=== PATIENT | male | born 1995 | race Two or more races ===

== ENCOUNTER 2019-06-07 22:15 | Emergency (ER) | payer OTHER ==
[~2019-06-07] VITALS: Ht 172.7 cm; Wt 83.9 kg
[2019-06-08] MEDS ORDERED: DexAMETHasone SOD PHOS 10MG/1ML VIAL INJ IM ONE (01:30)
[2019-06-08] MEDS ORDERED: FLUORESCEIN SOD 1 MG TEST STRIP EACHEYE ONE (01:30)
[2019-06-08] MEDS ORDERED: TETRACAINE HCL 0.5% OPTH(EYE) SOLN 4ML EACHEYE ONE (01:30)
[2019-06-08 02:52] VITALS: BP 127/76
== END 2019-06-08 02:55 | disposition home or self-care (01) ==
LOC: ER 22:15
DX: H16.001 Unspecified corneal ulcer, right eye (principal); T26.91XA Corrosion of right eye and adnexa, part unspecified, initial encounter; Y93.89 Activity, other specified; Y99.0 Civilian activity done for income or pay; Y92.89 Other specified places as the place of occurrence of the external cause
CPT/HCPCS: 96372; 99283; J1100; J7030